=== PATIENT | male | born 1960 | race African-American/Black ===

== ENCOUNTER 2020-05-03 13:18 | Emergency (ER) | payer OTHER ==
--- NOTE | 2020-05-03 14:40 | RAD REPORT ---
EXAM DESCRIPTION: CT - Head C Spine Mpr Wo Con - 05/03/2020 2:23 pm CLINICAL HISTORY: Head and neck injury status post fall. Head and neck pain COMPARISON: None. TECHNIQUE: Computed axial tomography of the head and cervical spine was obtained. Sagittal and coronal reconstruction was performed. All CT scans are performed using dose optimization technique as appropriate and may include automated exposure control or mA/KV adjustment according to patient size. FINDINGS: An intracranial bleed is not seen. The ventricles are normal in caliber. An extra-axial fl uid collection is not noted. A cervical fracture is not visualized. No dislocation is noted. IMPRESSION: No acute intracranial abnormality is seen. A cervical fracture is not visualized. If the patient continues to have symptoms to suggest intracra nial /spinal cord pathology then MRI would be recommended
[2020-05-03 14:46] LABS: Absolute Lymphocytes (CBC) 2.3 K/uL (0.7-4.9); Basophils % 0.7 % (0-1.3); Hematocrit 45.3 % (39.6-49.0); MPV 8.9 fL (7.6-11.3); RBC Red Blood Cell Count 5.25 M/uL (4.33-5.43)
--- NOTE | 2020-05-03 14:46 | RAD REPORT ---
EXAM DESCRIPTION: CT - Facial Bones W/ Mpr - 05/03/2020 2:23 pm CLINICAL HISTORY: Facial injury status post fall with facial pain COMPARISON: None TECHNIQUE: Computed axial tomography of the face was obtained. Coronal and sagittal reconstruction w as performed. All CT scans are performed using dose optimization technique as appropriate and may include automated exposure control or mA/KV adjustment according to patient size. FINDINGS: An avulsion fracture involves the right mandibular condyle which is displaced medially. A right TMJ dislocation is present. Nondisplaced fracture involves the mandible midline. The globes are intact. Fluid within the sinuses is not seen. Left preseptal swelling IMPRESSION: Avulsion fracture right mandibular condyle. Nondisplaced fracture mandible midline Right TMJ dislocation
[2020-05-03 14:49] LABS: Protime INR 0.98
[2020-05-03 15:04] LABS: Albumin 4.4 g/dL (3.4-5.0); Bilirubin Direct 0.2 mg/dL (0-0.2); Bilirubin Total 0.7 mg/dL (0.2-1.0); Magnesium 2.1 mg/dL (1.8-2.4); Protein, Total 8.7 g/dL (6.4-8.2); Troponin (Emerg Dept Use Only) 0.02 ng/mL (0.0-0.045)
--- NOTE | 2020-05-03 15:04 | EDPHYS ---
Physician Documentation [facility] Name: Jordan Hernandez Jr Age: 59 yrs Sex: Male : 1960 Arrival Date: 05/03/2020 Time: 13:24 Bed 25 Private MD: ED Physician HPI: 05/03 13:50 This 59 yrs old Black Male presents to ER via [employer] with complaints of Facial cp Injury. 13:50 The patient or guardian reports injury, a laceration. cp 13:50 The complaints affect the chin. Context of injury: The problem was sustained at long-term. cp Onset: The symptoms/episode began/occurred yesterday. Associated signs and symptoms: Pertinent positives: jaw pain. Patient reports he was standing in line to receive medications yesterday, reports he lost consciousness and fell to ground striking chin and jaw. Patient reports incident occurred yesterday. Historical: - Allergies: 13:29 No Known Allergies; ss - Home Meds: 13:29 unknown BP meds [Active]; ss - PMHx: 13:29 Hypertension; ss - PSHx: 13:29 None; ss - Immunization history:: Adult Immunizations up to date. - Social history:: Smoking status: Patient denies any tobacco usage or history of. ROS: 13:55 Constitutional: Negative for body aches, chills, fever, poor PO intake. cp 13:55 Eyes: Negative for injury, pain, redness, and discharge. cp 13:55 ENT: Positive for dental pain, lower jaw pain, Negative for ear pain. 13:55 Neck: Negative for pain with movement, pain at rest, stiffness. 13:55 Cardiovascular: Negative for chest pain, edema, palpitations. 13:55 Respiratory: Negative for cough, shortness of breath, wheezing. 13:55 Abdomen/GI: Negative for abdominal pain, nausea, vomiting, and diarrhea. 13:55 Back: Negative for pain at rest, pain with movement. 13:55 Neuro: Positive for syncope, Negative for altered mental status, headache, numbness, weakness. 13:55 All other systems are negative. Exam: 14:00 Constitutional: The patient appears in no acute distress, alert, awake, cp non-diaphoretic, non-toxic, well developed, well nourished. 14:00 Head/Face: Normocephalic, atraumatic. cp 14:00 Eyes: Periorbital structures: appear normal, Pupils: equal, round, and reactive to light and accomodation, Extraocular movements: intact throughout, Conjunctiva: normal, no exudate, no injection, Sclera: no appreciated abnormality, Lids and lashes: appear normal, bilaterally. 14:00 ENT: External ear(s): are unremarkable, Nose: is normal, Mouth: Lips: moist, Oral mucosa: moist, Posterior pharynx: Airway: no evidence of obstruction, patent, Dental exam: dental caries, that is moderate, diffusely, pain, that is moderate, right lower jaw, Voice: is normal. 14:00 Neck: C-spine: vertebral tenderness, is not appreciated, crepitus, is not appreciated, ROM/movement: is normal, is supple, without pain, no range of motions limitations, no nuchal rigidity. 14:00 Chest/axilla: Inspection: normal, Palpation: is normal, no crepitus, no tenderness. 14:00 Cardiovascular: Rate: normal, Rhythm: regular, Heart sounds: murmur, not appreciated, Edema: is not appreciated, JVD: is not appreciated. 14:00 Respiratory: the patient does not display signs of respiratory distress, Respirations: normal, Breath sounds: are clear throughout, no decreased breath sounds, no stridor, no wheezing. 14:00 Abdomen/GI: Inspection: abdomen appears normal, Palpation: abdomen is soft and cp non-tender, in all quadrants. 14:00 Back: pain, is absent, ROM is normal. cp 14:00 Musculoskeletal/extremity: Exam is negative for decreased range of motion, deformity, injury. 14:00 Skin: injury, laceration(s), the wound is approximately 2.5 cm(s), of the underside of chin, that can be described as clean, no foreign body, linear, without bleeding. 14:00 Neuro: Orientation: to person, place \T\ time. Mentation: is normal, Cerebellar function: is grossly normal, Motor: moves all fours, strength is normal, Sensation: is normal, Gait: is steady. 14:21 ECG was reviewed by the Attending Physician. cp Vital Signs: 13:26 BP 151 / 99; Pulse 89; Resp 16; Temp 98.6(TE); Pulse Ox 100% on R/A; Weight 70.31 kg; ss Height 5 ft. 8 in. (172.72 cm); Pain 9/10; 13:45 BP 149 / 93; Pulse 76; Resp 16; Pulse Ox 99% on R/A; mt 20:11 BP 140 / 82; Pulse 77; Resp 16; Temp 98.6; Pulse Ox 100% on R/A; sg 22:30 BP 139 / 87; Pulse 70; Resp 17; Pulse Ox 98% ; rr5 13:26 Body Mass Index 23.57 (70.31 kg, 172.72 cm) ss Marta Coma Score: 13:50 Eye Response: spontaneous(4). Verbal Response: oriented(5). Motor Response: obeys cp commands(6). Total: 15. MDM: 13:35 Patient medically screened. cp 14:00 Differential diagnosis: Contusion of Hematoma on Laceration of Intracranial bleed- cp Concussion cerebral contusion, cardiac arrythmia. 16:23 Data reviewed: vital signs, nurses notes. Test interpretation: by ED physician or cp midlevel provider: ECG, plain radiologic studies. Counseling: I had a detailed discussion with the patient and/or guardian regarding: the historical points, exam findings, and any diagnostic results supporting the discharge/admit diagnosis, the presence of at least one elevated blood pressure reading (>120/80) during this emergency department visit, lab results, radiology results, the need to transfer to another facility, [facility] does not immediately have the required specialist. 05/03 13:46 Order name: Basic Metabolic Panel; Complete Time: 15:06 05/03 15:06 Interpretation: Normal except: GFR 81. 05/03 13:46 Order name: CBC with Diff; Complete Time: 14:56 05/03 16:22 Interpretation: Reviewed. 05/03 13:46 Order name: LFT's; Complete Time: 15:06 05/03 16:22 Interpretation: Normal except: TP 8.7; GLOB 4.3; A/G 1.0. 05/03 13:46 Order name: Magnesium; Complete Time: 15:06 05/03 13:46 Order name: NT PRO-BNP; Complete Time: 15:06 05/03 13:46 Order name: PT-INR; Complete Time: 14:56 05/03 13:46 Order name: CT Head C Spine; Complete Time: 14:53 cp 05/03 13:46 Order name: Troponin (emerg Dept Use Only); Complete Time: 15:06 cp 05/03 15:07 Interpretation: Within normal limits: TROPED 0.02. 05/03 13:46 Order name: XRAY Chest (1 view); Complete Time: 16:22 cp 05/03 13:46 Order name: CT Facial Bones W/O Con; Complete Time: 14:53 cp 05/03 19:33 Order name: SARS-COV-2 RT PCR; Complete Time: 19:40 EDMS 05/03 19:40 Interpretation: Results reviewed. 05/03 13:46 Order name: EKG; Complete Time: 13:47 cp 05/03 13:46 Order name: Cardiac monitoring; Complete Time: 13:54 cp 05/03 13:46 Order name: EKG - Nurse/Tech; Complete Time: 14:10 05/03 13:46 Order name: IV Saline Lock; Complete Time: 15:00 05/03 13:46 Order name: Labs collected and sent; Complete Time: 15:00 cp 05/03 13:46 Order name: O2 Per Protocol; Complete Time: 13:54 cp 05/03 13:46 Order name: O2 Sat Monitoring; Complete Time: 13:54 05/03 14:58 Order name: Wound Care: please clean and dress chin laceration; Complete Time: 15:13 cp EC:21 Rate is 85 beats/min. Rhythm is regular. CA interval is normal. QRS interval is normal. cp QT interval is normal. T waves are Inverted in lead aVR. Interpreted by me. Reviewed by me. Administered Medications: 13:54 Not Given (Pt is up to date): Tetanus-Diphtheria Toxoid Adult 0.5 ml IM once ss 15:05 Drug: morphine 2 mg Route: IVP; Site: left antecubital; ss 15:56 Follow up: Response: No adverse reaction; Pain is decreased ss 18:33 Drug: morphine 2 mg Route: IVP; Site: left antecubital; ss 22:34 Drug: morphine 2 mg {Note: rass 0.} Route: IVP; Site: left antecubital; rr5 Disposition: 05/03/20 15:03 Transfer ordered to [facility]. Diagnosis are Syncope and collapse, Laceration without foreign body of other part of head, Fracture of mandible. - Reason for transfer: Higher level of care. - Accepting physician is DR Donita Begum. - Condition is Stable. - Problem is new. - Symptoms have improved. Addendum: 05/06/2020 08:23 Co-signature as Attending Physician, Darrell DYE I agree with the assessment and plan k dr of care. 08:23 Co-signature as Attending Physician, Gibson Ramon MD I agree with the assessment and k dr plan of care. Signatures: Dispatcher [employer] EDNY Zane Guerra, RN RN sg Gibson Ramon MD MD [facility] Savana Gutierrez RN RN ss Darrell Gallagher PA PA cp Pepe Sevilla RN RN rr5 Corrections: (The following items were deleted from the chart) 05/03 18:24 15:03 05/03/2020 15:03 Transfer ordered to [facility]. Diagnosis is Syncope and cp collapse; Laceration without foreign body of other part of head; Fracture of mandible. Reason for transfer: Higher level of care. Accepting physician is Doctor. Condition is Stable. Problem is new. Symptoms have improved. cp 18:47 15:09 CORONAVIRUS+MR.LAB.BRZ ordered. EDNY EDMS 22:20 18:24 05/03/2020 15:03 [facility] Diagnosis is Syncope and sg collapse; Laceration without foreign body of other part of head; Fracture of mandible. Reason for transfer: Higher level of care. Accepting physician is DR Donita Begum. Condition is Stable. Problem is new. Symptoms have improved. cp 22:44 22:20 05/03/2020 15:03 [facility] Diagnosis is Syncope and rr5 collapse; Laceration without foreign body of other part of head; Fracture of mandible. Reason for transfer: Higher level of care. Accepting physician is DR Donita Begum. Condition is Stable. Problem is new. Symptoms have improved. sg
--- NOTE | 2020-05-03 15:04 | ER ---
Nurse's Notes [facility] Name: Jordan Hernandez Jr Age: 59 yrs Sex: Male : 1960 Arrival Date: 05/03/2020 Time: 13:24 Bed 25 Private MD: Diagnosis: Syncope and collapse;Laceration without foreign body of other part of head;Fracture of mandible Presentation: 05/03 13:26 Chief complaint: Patient states: chin laceration after falling forward from standing ss two days ago. PT reports that it also knocked out his molar. Coronavirus screen: Client denies travel out of the [place] in the last 14 days. Ebola Screen: Patient denies exposure to infectious person. Patient denies travel to an Ebola-affected area in the 21 days before illness onset. Initial Sepsis Screen: Does the patient meet any 2 criteria? No. Patient's initial sepsis screen is negative. Does the patient have a suspected source of infection? No. Patient's initial sepsis screen is negative. Risk Assessment: Do you want to hurt yourself or someone else? Patient reports no desire to harm self or others. Onset of symptoms was May 01, 2020. 13:26 Method Of Arrival: Law Enforcement: [place] [facility] Corrections 13:26 Acuity: HETAL 3 ss Historical: - Allergies: 13:29 No Known Allergies; ss - Home Meds: 13:29 unknown BP meds [Active]; ss - PMHx: 13:29 Hypertension; ss - PSHx: 13:29 None; ss - Immunization history:: Adult Immunizations up to date. - Social history:: Smoking status: Patient denies any tobacco usage or history of. Screenin:29 Abuse screen: Denies threats or abuse. Denies injuries from another. Nutritional ss screening: No deficits noted. Tuberculosis screening: Never had TB. Fall Risk Fall in past 12 months (25 points). No secondary diagnosis (0 pts). No IV (0 pts). Ambulatory Aid- None/Bed Rest/Nurse Assist (0 pts). Gait- Normal/Bed Rest/Wheelchair (0 pts) Mental Status- Oriented to own ability (0 pts). Assessment: 13:24 General: Appears uncomfortable, Behavior is calm, cooperative, Denies fever, feeling ss ill, fatigue, chills. Pain: Complains of pain in chin, right jaw and left jaw Pain currently is 9 out of 10 on a pain scale. Quality of pain is described as aching, tender, Pain began 2-3 days ago. Is continuous. Neuro: Level of Consciousness is awake, alert, obeys commands, Oriented to person, place, time, situation, Maintenance Aide are equal bilaterally Speech is normal. Cardiovascular: Pulses are palpable in right radial artery, right posterior tibial artery, left radial artery and left posterior tibial artery. Respiratory: Airway is patent Trachea midline Respiratory effort is even, unlabored, Respiratory pattern is regular, symmetrical. GI: Patient currently denies abdominal pain, diarrhea, nausea, vomiting. EENT: Oral mucosa is moist. Throat is clear Reports molars were knocked out after falling. Derm: Skin is intact, is healthy with good turgor, Skin is dry, Skin is pink, warm \T\ dry. normal. Injury Description: Laceration sustained to chin is 0.5 to 2.5 cm long, was sustained 2 days ago. no active bleeding noted at this time. 13:29 Reassessment: TWO [employer] unit guards remain with patient. Pt remains in wrist and ankle shackles. 14:10 Reassessment: EKG done. Pt to CT at this time VIA stretcher. 15:13 Reassessment: Chloe, with [facility] states that [facility] is at capacity and there are no beds available at this time. MARNIE Brown notified and states okay to wait. 18:34 Reassessment: Patient appears in no apparent distress at this time. Patient and/or ss family updated on plan of care and expected duration. Pain level reassessed. Patient is alert, oriented x 3, equal unlabored respirations, skin warm/dry/pink. Awaiting for transportation to be arranged by [facility] care to [facility]. 19:05 Reassessment: pt to be transferred to in the [facility] at this time, awaiting for nurse to sg take report at receiving facility. 20:23 Reassessment: 2007- spoke with [facility] and confirmed this patient will need sg transport and not go by Van to the receiving hospital as this patient requires IV access to remain in place and VS monitoring. pt awaiting transport at this time. 20:35 Reassessment: awaiting a call back for [facility] for pt transport. sg 21:22 Reassessment: Patient appears in no apparent distress at this time. Chloe with [facility] reports a van with escort guards are in route for pt transport and it is ok for pt to leave with a saline lock in place. 22:30 Reassessment: Patient appears in no apparent distress at this time. complaint of mouth rr5 pain, ED provider aware with order made and carried out. 22:40 Reassessment: [facility] crew at bedside for pt transport to receiving facility. sg Vital Signs: 13:26 BP 151 / 99; Pulse 89; Resp 16; Temp 98.6(TE); Pulse Ox 100% on R/A; Weight 70.31 kg; ss Height 5 ft. 8 in. (172.72 cm); Pain 9/10; 13:45 BP 149 / 93; Pulse 76; Resp 16; Pulse Ox 99% on R/A; mt 20:11 BP 140 / 82; Pulse 77; Resp 16; Temp 98.6; Pulse Ox 100% on R/A; sg 22:30 BP 139 / 87; Pulse 70; Resp 17; Pulse Ox 98% ; rr5 13:26 Body Mass Index 23.57 (70.31 kg, 172.72 cm) ss Salix Coma Score: 13:50 Eye Response: spontaneous(4). Verbal Response: oriented(5). Motor Response: obeys cp commands(6). Total: 15. ED Course: 13:24 Patient arrived in ED. ss 13:27 Darrell Gallagher PA is PHCP. cp 13:27 Gibson Ramon MD is Attending Physician. cp 13:28 Triage completed. ss 13:29 Arm band placed on right wrist. ss 13:29 Patient has correct armband on for positive identification. Bed in low position. Call ss light in reach. Side rails up X 1. 13:52 Savana Gutierrez, EWELINA is Primary Nurse. ss 14:00 Inserted saline lock: 20 gauge in left antecubital area, using aseptic technique. Blood ss collected. Patient maintains SpO2 saturation greater than 95% on room air. 14:23 CT Head C Spine In Process Unspecified. EDMS 14:23 CT Facial Bones W/O Con In Process Unspecified. EDMS 14:27 XRAY Chest (1 view) In Process Unspecified. EDMS 15:04 initiated a transfer with Chloe from [facility]. eb 17:46 initiated a transfer with Katelyn from the [facility] Transfer Center. eb 18:[address] Kendall the O[employer] application chemist for [facility] with Dr. Ramon and Darrell bhandari for patient transfer consultation. 18:20 administrative approval given by Katelyn Hutchinson Rn/ Patient has been accepted to [facility]/ Dr. Clayton Reyes has accepted the patient in transfer/ report to be called to [phone]. 18:30 attempted to call [facility] to arrange transport/ they are unable to understand and will attempt to call back in a few. 19:10 Primary Nurse role handed off by Savana Gutierrez, EWELINA 19:10 Zane Guerra, EWELINA is Primary Nurse. sg 20:05 No provider procedures requiring assistance completed. Patient transferred, IV remains ss in place. 22:28 Attending Physician role handed off by Gibson Ramon MD rr5 Administered Medications: 13:54 Not Given (Pt is up to date): Tetanus-Diphtheria Toxoid Adult 0.5 ml IM once ss 15:05 Drug: morphine 2 mg Route: IVP; Site: left antecubital; ss 15:56 Follow up: Response: No adverse reaction; Pain is decreased ss 18:33 Drug: morphine 2 mg Route: IVP; Site: left antecubital; ss 22:34 Drug: morphine 2 mg {Note: rass 0.} Route: IVP; Site: left antecubital; rr5 Outcome: 14:00 Instructed on the need for transfer. ss 15:03 ER care complete, transfer ordered by . cp 20:34 Transferred by ground EMS Note: report called to Sarahy Ritchie RN at [facility] 22:40 Transferred by ground EMS to [facility], Transfer form completed. Note: pt sg transported via [facility] Van to receiving hospital per [facility] with [facility] 22:40 Condition: stable 22:40 Instructed on the need for transfer, safety practices, Demonstrated understanding of instructions. 22:44 Patient left the ED. rr5 Signatures: Dispatcher [employer] EDMS Zane Guerra RN RN Savana Gutierrez RN RN Darrell Gallagher PA PA cp Thompson, Moriah nh Mendiola, Harika eb Sevilla, Pepe, RN RN rr5 Corrections: (The following items were deleted from the chart) 22:50 22:20 Patient left the ED. sg sg
--- NOTE | 2020-05-03 15:19 | RAD REPORT ---
EXAM DESCRIPTION: Susan Single View05/03/2020 2:27 pm CLINICAL HISTORY: Hypertension COMPARISON: none FINDINGS: Lungs are hyperaerated. The lungs appear clear of acute infiltrate. The heart is normal size IMPRESSION: No acute abnormalities displayed
[2020-05-03] MEDS ORDERED: MORPHINE 2 MG/ML SYR ONE ×3 (15:21→22:48)
--- NOTE | 2020-05-04 11:13 | EKG ---
Test Date: 2020-05-03 Test Time: 14:02:52 Construction Contractor: SHIMON MEASUREMENT RESULTS: Intervals: Rate: 85 DC: 110 QRSD: 72 QT: 364 QTc: 433 Killen: P: 43 DC: 110 QRS: 57 T: 43 INTERPRETIVE STATEMENTS: Sinus rhythm with short DC Minimal voltage criteria for LVH, may be normal variant Borderline ECG No previous ECG available for comparison Electronically Signed On 05-04-20 11:11:22 CDT by Urban Haney
[2020-05-04 15:13] VITALS: TEMP 98.6
[2020-05-04 16:09] VITALS: BP 139/87; O2SAT 98
== END 2020-05-03 22:44 | disposition short-term general hospital (02) ==
LOC: ER 13:18
DX: S02.69XA Fracture of mandible of other specified site, initial encounter for closed fracture (principal); S01.81XA Laceration without foreign body of other part of head, initial encounter; W19.XXXA Unspecified fall, initial encounter; Y92.149 Unspecified place in prison as the place of occurrence of the external cause; I10 Essential (primary) hypertension; R55 Syncope and collapse; Z20.822 Contact with and (suspected) exposure to COVID-19
CPT/HCPCS: 93005; 85025; 80048; 36415; 83735; 85610; 80076; 84484; 83880; 70450; 72125; 70486; 76377; 71045; 96374; 99285; U0003; J2270

== ENCOUNTER 2020-05-08 11:25 | Emergency (ER) | payer OTHER ==
--- NOTE | 2020-05-08 11:43 | ER ---
Nurse's Notes [facility] Name: Jordan Hernandez Jr Age: 59 yrs Sex: Male : 1960 Arrival Date: 05/08/2020 Time: 11:26 Bed 4 Private MD: Diagnosis: Fracture of mandible, unspecified-right mandibular condyle;Hematemesis;Abdominal tenderness;Acute kidney failure Presentation: 05/08 11:26 Chief complaint: Patient states: Vomiting dark brown bloody emesis x 3-4 days. Pt was ss recently discharged from [facility] for jaw fracture after falling from a syncopal episode. Pt states that no procedures were done at the hospital and he has not been able to eat hardly anything. Coronavirus screen: Client denies travel out of the [place] in the last 14 days. Ebola Screen: Patient denies exposure to infectious person. Patient denies travel to an Ebola-affected area in the 21 days before illness onset. Initial Sepsis Screen: Does the patient meet any 2 criteria? No. Patient's initial sepsis screen is negative. Does the patient have a suspected source of infection? No. Patient's initial sepsis screen is negative. Risk Assessment: Do you want to hurt yourself or someone else? Patient reports no desire to harm self or others. Onset of symptoms was May 05, 2020. 11:26 Method Of Arrival: Law Enforcement: [place] [employer] 11:26 Acuity: HETAL 3 ss Historical: - Allergies: 11:29 No Known Allergies; ss - PMHx: 11:29 Hypertension; ss - PSHx: 11:29 None; ss - Immunization history:: Adult Immunizations up to date. - Social history:: Smoking status: Patient denies any tobacco usage or history of. Screenin:01 Abuse screen: Denies threats or abuse. Denies injuries from another. Nutritional sv screening: No deficits noted. Tuberculosis screening: No symptoms or risk factors identified. Fall Risk None identified. Assessment: 11:45 General: Appears in no apparent distress. uncomfortable, slender, well developed, sv Behavior is calm, cooperative, appropriate for age. Pain: Complains of pain in right jaw Pain currently is 8 out of 10 on a pain scale. Neuro: Level of Consciousness is awake, alert, obeys commands, Oriented to person, place, time, situation, Moves all extremities. Full function Speech is normal. Respiratory: Airway is patent Respiratory effort is even, unlabored, Respiratory pattern is regular, symmetrical. GI: Abdomen is flat, Reports nausea, vomiting. Derm: Skin is normal. 12:42 Reassessment: Patient appears in no apparent distress at this time. No changes from sv previously documented assessment. Patient and/or family updated on plan of care and expected duration. Pain level reassessed. Patient is alert, oriented x 3, equal unlabored respirations, skin warm/dry/pink. 13:45 Reassessment: Patient appears in no apparent distress at this time. Patient and/or hb family updated on plan of care and expected duration. Pain level reassessed. Patient is alert, oriented x 3, equal unlabored respirations, skin warm/dry/pink. 14:35 Reassessment: Patient appears in no apparent distress at this time. No changes from sv previously documented assessment. Patient and/or family updated on plan of care and expected duration. Pain level reassessed. Patient is alert, oriented x 3, equal unlabored respirations, skin warm/dry/pink. [facility] at the bedside. Report given to them. She is calling their boss to see if they are able to transport the pt with a Protonix drip. 14:40 Reassessment: [facility] ok to take pt. Protonix drip placed on a dial-a-flow. sv Vital Signs: 11:26 BP 132 / 84; Pulse 109; Resp 18; Pulse Ox 96% on R/A; Weight 63.5 kg; Height 5 ft. 8 ss in. (172.72 cm); Pain 8/10; 12:03 BP 121 / 98; Pulse 102; Resp 24; Pulse Ox 99% ; sv 12:39 BP 137 / 83; Pulse 94; Resp 14; Pulse Ox 100% on R/A; sv 13:13 BP 130 / 81; Pulse 90; Resp 16; Pulse Ox 100% ; sv 14:34 BP 120 / 92; Pulse 103; Resp 20; Pulse Ox 100% on R/A; sv 11:26 Body Mass Index 21.29 (63.50 kg, 172.72 cm) ED Course: 11:26 Patient arrived in ED. ss 11:26 Maintain EMS IV. Dressing intact. Site clean \T\ dry. Gauge \T\ site: 20G L AC. sv 11:28 Triage completed. ss 11:30 Darrell Hughes MD is Attending Physician. jose juan 11:40 Jeannine Medina, EWELINA is Primary Nurse. sv 11:45 EKG done, by ED staff, reviewed by Darrell Hughes MD. sv 11:45 Patient has correct armband on for positive identification. Bed in low position. Call sv light in reach. Side rails up X2. 2 correction guards at the bedside. Pt is shackled. cargo and ramp services manager on. Pulse ox on. NIBP on. 11:45 Arm band placed on. sv 11:47 IV discontinued, intact, No redness/swelling at site. Pressure dressing applied, to the sv L AC, placed by EMS. 11:50 Inserted saline lock: 20 gauge in right forearm, using aseptic technique. Blood sv collected. Flushed right forearm with 5 ml normal saline. 12:03 LFT's Sent. sv 12:03 CBC with Diff Sent. sv 12:03 Basic Metabolic Panel Sent. sv 12:39 No provider procedures requiring assistance completed. sv 12:42 transfer transportation to receiving facility. sv 12:44 XRAY Chest (1 view) In Process Unspecified. EDMS 13:58 US Rp Exam Complete In Process Unspecified. EDMS Administered Medications: 12:03 Drug: NS 0.9% 1000 ml Route: IV; Rate: 1 bolus; Site: right forearm; sv 13:00 Follow up: Response: No adverse reaction; IV Status: Completed infusion; IV Intake: sv 1000ml 12:03 Drug: ProTONIX 8 mg/hr Route: IV; Rate: 25 ml/hr; Site: right forearm; sv 14:46 Follow up: IV Status: Infusion continued upon transfer sv 12:04 Drug: Ancef (cefazolin) 1 grams Route: IVPB; Site: right forearm; sv 12:06 Follow up: Response: No adverse reaction; IV Status: Completed infusion; IV Intake: 10mlsv 12:04 Drug: ProTONIX 80 mg Route: IVP; Site: right forearm; sv 12:30 Follow up: Response: No adverse reaction sv 12:04 Drug: Zofran (Ondansetron) 4 mg Route: IVP; Site: right forearm; sv 12:30 Follow up: Response: No adverse reaction sv 12:04 Drug: NS 0.9% 1000 ml Route: IV; Rate: 125 ml/hr; Site: right forearm; sv 14:45 Follow up: Response: No adverse reaction; IV Status: Order to discontinue infusion sv Intake: 12:06 IV: 10ml; Total: 10ml. sv 13:00 IV: 1000ml; Total: 1010ml. sv Outcome: 11:42 ER care complete, transfer ordered by MD. manzano 12:40 Transferred by ground EMS to [facility], Transfer form sv completed. X-rays sent w/ patient. Note: Jolly THEODORE 12:40 Condition: stable 12:40 Instructed on the need for transfer. 14:45 Patient left the ED. sv Signatures: Dispatcher [employer] Jeannine Duenas RN RN Darrell Deng MD MD cha Smirch, Shelby, RN RN ss Baxter, Heather RN RN
--- NOTE | 2020-05-08 11:43 | EDPHYS ---
Physician Documentation [facility] Name: Jordan Hernandez Jr Age: 59 yrs Sex: Male : 1960 Arrival Date: 05/08/2020 Time: 11:26 Bed 4 Private MD: ED Physician Darrell Hughes HPI: 05/08 11:35 This 59 yrs old Black Male presents to ER via [employer] with complaints of jose juan Nausea/Vomiting. 11:35 The patient presents to the emergency department with nausea, vomiting, that is jose juan continuous. Onset: The symptoms/episode began/occurred 2 day(s) ago. Possible causes:. The symptoms are aggravated by nothing. The symptoms are alleviated by nothing. Associated signs and symptoms: The patient has no apparent associated signs or symptoms. Severity of symptoms: At their worst the symptoms were mild moderate in the emergency department the symptoms are unchanged. The patient has not experienced similar symptoms in the past. Historical: - Allergies: 11: No Known Allergies; ss - PMHx: 11: Hypertension; ss - PSHx: 11: None; ss - Immunization history:: Adult Immunizations up to date. - Social history:: Smoking status: Patient denies any tobacco usage or history of. ROS: 11:36 Constitutional: Negative for fever, chills, and weight loss, Eyes: Negative for injury, jose juan pain, redness, and discharge, Neck: Negative for injury, pain, and swelling, Cardiovascular: Negative for chest pain, palpitations, and edema, Respiratory: Negative for shortness of breath, cough, wheezing, and pleuritic chest pain, Back: Negative for injury and pain, : Negative for injury, bleeding, discharge, and swelling, MS/Extremity: Negative for injury and deformity, Skin: Negative for injury, rash, and discoloration, Neuro: Negative for headache, weakness, numbness, tingling, and seizure, Psych: Negative for depression, anxiety, suicide ideation, homicidal ideation, and hallucinations, Allergy/Immunology: Negative for hives, rash, and allergies, Endocrine: Negative for neck swelling, polydipsia, polyuria, polyphagia, and marked weight changes, Hematologic/Lymphatic: Negative for swollen nodes, abnormal bleeding, and unusual bruising. 11:36 ENT: Positive for dental pain. 11:36 Abdomen/GI: Positive for abdominal pain, nausea and vomiting, hematemesis. Exam: 11:36 Constitutional: This is a well developed, well nourished patient who is awake, alert, jose juan and in no acute distress. Eyes: Pupils equal round and reactive to light, extra-ocular motions intact. Lids and lashes normal. Conjunctiva and sclera are non-icteric and not injected. Cornea within normal limits. Periorbital areas with no swelling, redness, or edema. Neck: Trachea midline, no thyromegaly or masses palpated, and no cervical lymphadenopathy. Supple, full range of motion without nuchal rigidity, or vertebral point tenderness. No Meningismus. Chest/axilla: Normal chest wall appearance and motion. Nontender with no deformity. No lesions are appreciated. Cardiovascular: Regular rate and rhythm with a normal S1 and S2. No gallops, murmurs, or rubs. Normal PMI, no JVD. No pulse deficits. Respiratory: Lungs have equal breath sounds bilaterally, clear to auscultation and percussion. No rales, rhonchi or wheezes noted. No increased work of breathing, no retractions or nasal flaring. Back: No spinal tenderness. No costovertebral tenderness. Full range of motion. Male : Normal genitalia with no discharge or lesions. Skin: Warm, dry with normal turgor. Normal color with no rashes, no lesions, and no evidence of cellulitis. MS/ Extremity: Pulses equal, no cyanosis. Neurovascular intact. Full, normal range of motion. Neuro: Awake and alert, GCS 15, oriented to person, place, time, and situation. Cranial nerves II-XII grossly intact. Motor strength 5/5 in all extremities. Sensory grossly intact. Cerebellar exam normal. Normal gait. Psych: Awake, alert, with orientation to person, place and time. Behavior, mood, and affect are within normal limits. 11:36 Head/face: Noted is contusion, deformity, swelling, of the right ear and right jaw. 12:02 ECG was reviewed by the Attending Physician. [facility] Vital Signs: 11:26 BP 132 / 84; Pulse 109; Resp 18; Pulse Ox 96% on R/A; Weight 63.5 kg; Height 5 ft. 8 ss in. (172.72 cm); Pain 8/10; 12:03 BP 121 / 98; Pulse 102; Resp 24; Pulse Ox 99% ; sv 12:39 BP 137 / 83; Pulse 94; Resp 14; Pulse Ox 100% on R/A; sv 13:13 BP 130 / 81; Pulse 90; Resp 16; Pulse Ox 100% ; sv 14:34 BP 120 / 92; Pulse 103; Resp 20; Pulse Ox 100% on R/A; sv 11:26 Body Mass Index 21.29 (63.50 kg, 172.72 cm) ss MDM: 11:30 Patient medically screened. [facility] 11:54 Differential diagnosis: Nonspecific abd pain, pancreatitis, viral gastroenteritis, jose juan gastroenteritis. Data reviewed: vital signs, nurses notes, lab test result(s), EKG, radiologic studies, plain films. Data interpreted: swage toolsetter: rate is 96 beats/min, rhythm is regular, Pulse oximetry: on room air is 96 %. Test interpretation: by ED physician or midlevel provider: ECG, plain radiologic studies. Counseling: I had a detailed discussion with the patient and/or guardian regarding: the historical points, exam findings, and any diagnostic results supporting the discharge/admit diagnosis, lab results, radiology results, the need to transfer to another facility, for higher level of care, [facility] does not immediately have the required specialist. 05/08 11:35 Order name: Basic Metabolic Panel [facility] 05/08 11:35 Order name: CBC with Diff [facility] 05/08 11:35 Order name: LFT's [facility] 05/08 11:35 Order name: Magnesium; Complete Time: 13:37 [facility] 05/08 11:35 Order name: NT PRO-BNP; Complete Time: 13:37 [facility] 05/08 11:35 Order name: PT-INR; Complete Time: 13:37 [facility] 05/08 11:35 Order name: Troponin (emerg Dept Use Only); Complete Time: 13:37 [facility] 05/08 11:35 Order name: Lipase; Complete Time: 13:37 [facility] 05/08 11:35 Order name: Basic Metabolic Panel; Complete Time: 13:37 [facility] 05/08 11:35 Order name: CBC with Automated Diff; Complete Time: 13:37 [facility] 05/08 11:35 Order name: Liver (Hepatic) Function; Complete Time: 13:37 [facility] 05/08 13:15 Order name: Manual Differential; Complete Time: 13:37 [facility] 05/08 13:22 Order name: SARS-COV-2 RT PCR; Complete Time: 13:37 [facility] 05/08 11:35 Order name: XRAY Chest (1 view); Complete Time: 13:37 [facility] 05/08 11:35 Order name: EKG; Complete Time: 11:35 [facility] 05/08 11:35 Order name: Cardiac monitoring; Complete Time: 12:05 [facility] 05/08 11:35 Order name: EKG - Nurse/Tech; Complete Time: 12:05 [facility] 05/08 11:35 Order name: IV Saline Lock; Complete Time: 12:05 [facility] 05/08 11:35 Order name: Labs collected and sent; Complete Time: 12:05 [facility] 05/08 11:35 Order name: O2 Per Protocol; Complete Time: 12:05 [facility] 05/08 11:35 Order name: O2 Sat Monitoring; Complete Time: 12:05 [facility] 05/08 13:39 Order name: US Rp Exam Complete [facility] EC:02 Rate is 94 beats/min. Rhythm is regular. QRS [place] is Normal. HI interval is normal. QRS jose juan interval is normal. QT interval is normal. No Q waves. T waves are Normal. No ST changes noted. Clinical impression: LVH and No evidence of ischemia. Interpreted by me. Reviewed by me. Administered Medications: 12:03 Drug: NS 0.9% 1000 ml Route: IV; Rate: 1 bolus; Site: right forearm; sv 13:00 Follow up: Response: No adverse reaction; IV Status: Completed infusion; IV Intake: sv 1000ml 12:03 Drug: ProTONIX 8 mg/hr Route: IV; Rate: 25 ml/hr; Site: right forearm; sv 14:46 Follow up: IV Status: Infusion continued upon transfer sv 12:04 Drug: Ancef (cefazolin) 1 grams Route: IVPB; Site: right forearm; sv 12:06 Follow up: Response: No adverse reaction; IV Status: Completed infusion; IV Intake: 10mlsv 12:04 Drug: ProTONIX 80 mg Route: IVP; Site: right forearm; sv 12:30 Follow up: Response: No adverse reaction sv 12:04 Drug: Zofran (Ondansetron) 4 mg Route: IVP; Site: right forearm; sv 12:30 Follow up: Response: No adverse reaction sv 12:04 Drug: NS 0.9% 1000 ml Route: IV; Rate: 125 ml/hr; Site: right forearm; sv 14:45 Follow up: Response: No adverse reaction; IV Status: Order to discontinue infusion sv Disposition: 05/08/20 11:42 Transfer ordered to [facility]. Diagnosis are Fracture of mandible, unspecified - right mandibular condyle, Hematemesis, Abdominal tenderness, Acute kidney failure. - Reason for transfer: Higher level of care. - Accepting physician is to [facility]. - Condition is Fair. - Problem is new. - Symptoms have improved. Signatures: Dispatcher [employer] EDJeannine Chan RN RN Darrell Deng MD MD cha Smirch, Shelby, RN RN ss Corrections: (The following items were deleted from the chart) 12:39 12:00 CORONAVIRUS+MR.LAB.BRZ ordered. [facility] EDSD 13:41 11:42 05/08/2020 11:42 Transfer ordered to [facility]. Diagnosis is Fracture of jose juan mandible, unspecified - right mandibular condyle; Hematemesis; Abdominal tenderness. Reason for transfer: Higher level of care. Accepting physician is to [facility]. Condition is Fair. Problem is new. Symptoms have improved. [facility] 14:45 13:41 05/08/2020 11:42 Transfer ordered to [facility]. Diagnosis is Fracture of sv mandible, unspecified - right mandibular condyle; Hematemesis; Abdominal tenderness; Acute kidney failure. Reason for transfer: Higher level of care. Accepting physician is to [facility]. Condition is Fair. Problem is new. Symptoms have improved. [facility]
[2020-05-08] MEDS ORDERED: PANTOPRAZOLE INJ 80 MG in NA CHLORIDE 0.9% 250 ML IV ONE (12:00)
[2020-05-08] MEDS ORDERED: PANTOPRAZOLE 40 MG INJ ONE (12:03)
[2020-05-08] MEDS ORDERED: NA CHLORIDE 0.9% 1,000 ML ONE (12:03)
[2020-05-08] MEDS ORDERED: CEFAZOLIN/SWI 1gm 1 GM/10 ML SYR ONE (12:03)
[2020-05-08] MEDS ORDERED: ONDANSETRON 4 MG/2 ML VIAL ONE (12:03)
[2020-05-08 12:08] LABS: Absolute Lymphocytes (CBC) 0.7 K/uL (0.7-4.9); Basophils % 0.3 % (0-1.3); Hematocrit 51.7 % (39.6-49.0); Lymphocytes % 7.2 % (15.3-44.8); MPV 8.9 fL (7.6-11.3); RBC Red Blood Cell Count 6.09 M/uL (4.33-5.43)
[2020-05-08 12:19] LABS: Protime INR 0.98
[2020-05-08 12:30] LABS: ALT/SGPT 42 U/L (12-78); AST/SGOT 18 U/L (15-37); Albumin 4.5 g/dL (3.4-5.0); Alkaline Phosphatase 60 U/L (45-117); BUN Blood Urea Nitrogen 64 mg/dL (7-18); Bicarbonate 29 mmol/L (21-32); Bilirubin Direct 0.4 mg/dL (0-0.2); Bilirubin Total 0.8 mg/dL (0.2-1.0); Glucose Level 190 mg/dL (74-106); Lipase 139 U/L (73-393); NT PRO-BNP 190 pg/mL (<125); Potassium 4.1 mmol/L (3.5-5.1); Protein, Total 9.8 g/dL (6.4-8.2); Sodium Level 134 mmol/L (136-145); Troponin (Emerg Dept Use Only) < 0.02 ng/mL (0.0-0.045)
--- NOTE | 2020-05-08 12:59 | RAD REPORT ---
EXAM DESCRIPTION: RAD - Chest Single View - 05/08/2020 12:44 pm CLINICAL HISTORY: COUGH, vomiting COMPARISON: Portable May 03 TECHNIQUE: AP portable chest image was obtained 05/08/2020 12:44 pm . FINDINGS: Lungs remain clear. Interstitial pattern is stable. Heart and vasculature are normal. No m easurable pleural effusion and no pneumothorax. No acute bony abnormality seen. No acute aortic findi ngs suspected. IMPRESSION: No acute cardiopulmonary process. No significant change from comparison study.
[2020-05-08 13:15] LABS: Platelet Estimate ADEQ
[2020-05-08 13:16] LABS: Blood Morphology Comment NOT SEEN (NOT SEEN)
--- NOTE | 2020-05-08 15:08 | RAD REPORT ---
EXAM DESCRIPTION: US - Renal Ultrasound-Complete - 05/08/2020 2:20 pm CLINICAL HISTORY: arf COMPARISON: No comparisons FINDINGS: The right kidney measures 9.0 x 4.2 x 4.8 cm. The left kidney measures 8.7 x 4.8 x 4.5 cm . Renal cortical thickness and echogenicity are normal. No hydronephrosis or suspicious renal mass. No bladder wall thickening or mass. No intraluminal stone or mass. IMPRESSION: No hydronephrosis or suspicious renal mass. No other significant findings.
[2020-05-08 16:24] VITALS: O2SAT 100
[2020-05-08 16:27] VITALS: BP 120/92
--- NOTE | 2020-05-09 06:53 | EKG ---
Test Date: 2020-05-08 Test Time: 11:45:09 Product Grader: SV MEASUREMENT RESULTS: Intervals: Rate: 94 OR: 114 QRSD: 82 QT: 378 QTc: 472 Umpire: P: 67 OR: 114 QRS: 68 T: 94 INTERPRETIVE STATEMENTS: Normal sinus rhythm Minimal voltage criteria for LVH, may be normal variant Nonspecific ST and T wave abnormality Prolonged QT Abnormal ECG Compared to ECG 05/03/2020 14:02:52 ST (T wave) deviation now present Prolonged QT interval now present Short OR interval no longer present Electronically Signed On 05-09-20 06:51:33 CDT by Urban Haney
== END 2020-05-08 14:45 | disposition short-term general hospital (02) ==
LOC: ER 11:25
DX: S02.611A Fracture of condylar process of right mandible, initial encounter for closed fracture (principal); N17.9 Acute kidney failure, unspecified; R10.819 Abdominal tenderness, unspecified site; I10 Essential (primary) hypertension; Z20.822 Contact with and (suspected) exposure to COVID-19
CPT/HCPCS: 85025; 80048; 36415; 83735; 85610; 80076; 84484; 83690; 83880; 71045; 76770; U0003; J2405; 93005; 96365; 96366; 96375; 99285; C9113; J0690; J7030; J7050